=== PATIENT | female | born 1955 | race Caucasian/White ===

== ENCOUNTER 2018-12-24 16:27 | Emergency (ER) | payer SELFPAY ==
[~2018-12-24] VITALS: Ht 170.2 cm; Wt 70.0 kg
[~2018-12-24 16:27] MED LIST: AMOXICILLIN500 MG PO; AUGMENTIN875TAB OR; CALCIUM600 M1 PO; LEVOTHYROXIN75 MCG PO; MEDDOSEPAK PO; MULTI FOR HER PO; VAGIFEM10 MCG VA
[2018-12-24 16:34] VITALS: BP 159/89
[2018-12-24] MEDS ORDERED: KEFLEX500 M1 PO (18:49)
== END 2018-12-24 19:10 | disposition home or self-care (01) | DRG 563 ==
LOC: ED 16:27
PROC: 0HQGXZZ Repair Left Hand Skin, External Approach (ICD-10-PCS; principal; 2018-12-24)
PROC: 2W3KX1Z Immobilization of Left Finger using Splint (ICD-10-PCS; 2018-12-24)
DX: S62.633A Displaced fracture of distal phalanx of left middle finger, initial encounter for closed fracture (principal); S61.213A Laceration without foreign body of left middle finger without damage to nail, initial encounter; W23.1XXA Caught, crushed, jammed, or pinched between stationary objects, initial encounter; Y92.009 Unspecified place in unspecified non-institutional (private) residence as the place of occurrence of the external cause

== ENCOUNTER 2021-12-20 15:48 | Emergency (ER) | payer MEDICARE ==
[~2021-12-20] VITALS: Ht 170.2 cm; Wt 60.0 kg
[2021-12-20] VITALS (11 sets, daily range): BP systolic 126–153; BP diastolic 76–90
[~2021-12-20 15:48] MED LIST changes: +KEFLEX500 M1 PO
== END 2021-12-20 18:39 | disposition home or self-care (01) ==
LOC: ED 15:48
DX: S93.601A Unspecified sprain of right foot, initial encounter (principal); I48.91 Unspecified atrial fibrillation; W01.0XXA Fall on same level from slipping, tripping and stumbling without subsequent striking against object, initial encounter